=== PATIENT | male | born 1990 | race Caucasian/White ===

== ENCOUNTER 2018-10-22 22:56 | Emergency (ER) | payer SELFPAY ==
[~2018-10-22] VITALS: Ht 180.3 cm; Wt 86.2 kg
[2018-10-22 23:05] VITALS: Ht 180.3 cm; Wt 86.2 kg
[2018-10-23 00:26] LABS: CALCIUM 9.4 mg/dL (8.5-10.1); CARBON DIOXIDE 22.5 mmol/L (21-32); CHLORIDE SERUM 102 mmol/L (98-107); CREATININE SERUM 0.9 mg/dL (0.7-1.3); GFR1 > 60 mL/min; GLUCOSE SERUM 154 mg/dL (74-106); POTASSIUM SERUM 3.9 mmol/L (3.5-5.1); SODIUM SERUM 137 mmol/L (136-145)
[2018-10-23 00:32] LABS: ALBUMIN 4.3 g/dL (3.4-5.0); ALKALINE PHOSPHATASE 95 U/L (46-116); ALT/SGPT 30 U/L (16-63); AST/SGOT 19 U/L (15-37); BILIRUBIN TOTAL 0.3 mg/dL (0.20-1.00); LIPASE 93 IU/L (73-393)
[2018-10-23 00:34] LABS: BASOPHIL % 0.5 % (0-2); PLATELET COUNT 272 x10^3mcL (130-400); RED CELL DISTRIBUTION WIDTH 13.2 % (11.5-14.5)
[2018-10-23 01:54] LABS: microscopic required? YES; urine erythrocyte NEGATIVE (NEGATIVE)
[2018-10-23 02:06] LABS: AMPHETAMINE QUAL UR NONE DETECTED (See below)
[2018-10-23 02:13] VITALS: BP 114/53
== END 2018-10-23 02:15 | disposition home or self-care (01) ==
LOC: ED 22:56
PROVIDERS: Emergency Medicine
DX: R42 Dizziness and giddiness (principal); R11.10 Vomiting, unspecified; R10.13 Epigastric pain; R61 Generalized hyperhidrosis
CPT/HCPCS: J2405; J7030; J8597; Q0162